=== PATIENT | male | born 1975 | race Caucasian/White ===

== ENCOUNTER 2019-10-11 16:09 | Inpatient (IN) | payer BC, OTHER ==
[~2019-10-11] VITALS: Ht 175.3 cm; Wt 86.2 kg
[2019-10-11 16:00] VITALS: BP 121/70
[2019-10-11 16:26] VITALS: BP 118/82
[2019-10-11 18:00] VITALS: BP 110/68
[2019-10-11 18:04] LABS: BASOPHILS % 0.7 % (0.0-2.0); EOSINOPHILS % 2.4 % (0.0-5.0); HEMATOCRIT. 45.9 % (42.0-52.0); HEMOGLOBIN. 15.7 g/dL (14.0-18.0); LYMPHOCYTES % 20.8 % (20.0-50.0); MEAN CORPUSCULAR VOLUME 85.1 fL (80.0-94.0); MEAN PLATELET VOLUME 6.7 fl (7.4-10.4); MONOCYTES % 8.2 % (2.0-8.0); NEUTROPHILS % 67.9 % (40.0-76.0); PLATELET 308 x1000/uL (130-400); RED CELL DISTRIBUTION WIDTH 12.9 % (11.6-14.6)
[2019-10-11 18:05] LABS: CHLORIDE 104 mEq/L (98-107)
[2019-10-11] MEDS ORDERED: NITROGLYCERIN 0.4MG TABLET SL SL PRN (18:15)
[2019-10-11 18:17] LABS: PROTHROMBIN TIME 10.7 sec (9.6-11.0)
[2019-10-11 20:00] VITALS: BP 116/74
[2019-10-11] MEDS ORDERED: MAGNESIUM 4 G PREMIX 100 ML IV SCH (20:00)
[2019-10-11] MEDS ORDERED: DOCUSATE SODIUM 100MG CAPSULE PO SCH (21:00)
[2019-10-11 22:00] VITALS: BP 136/78
[2019-10-12] VITALS (12 sets, daily range): BP systolic 95–136; BP diastolic 63–91
[2019-10-12 03:20] LABS: CLARITY URINE CLEAR (CLEAR); COLOR URINE YELLOW (YELLOW); KETONES URINE NEGATIVE (NEGATIVE); LEUKOCYTE ESTERASE URINE NEGATIVE (NEGATIVE); NITRITE URINE NEGATIVE (NEGATIVE); OCCULT BLOOD URINE NEGATIVE (NEGATIVE); PROTEIN URINE NEGATIVE (NEGATIVE); SPECIFIC GRAVITY URINE 1.015 (1.005-1.030); UROBILINOGEN URINE 0.2 E.U./dL (0.2-1.0)
[2019-10-12] MEDS ORDERED: DIPHENHYDRAMINE 25MG CAPSULE PO PRN ×2 (19:00→21:00)
[2019-10-12] MEDS ORDERED: MAGNESIUM 4 G PREMIX 100 ML IV ONE (20:00)
[2019-10-12] MEDS ORDERED: DOCUSATE SODIUM 100MG CAPSULE PO SCH (21:00)
[2019-10-12] MEDS ORDERED: BISACODYL 10MG SUPP PR PRN (21:00)
[2019-10-12] MEDS ORDERED: ASCORBIC ACID 500 MG TABLET PO SCH (21:00)
[2019-10-12] MEDS ORDERED: CHLORHEXIDINE GLUCONATE 4% EXTERNAL USE TOP SCH (21:00)
[2019-10-12] MEDS: ALLOPURINOL 300 MG TABLET PO SCH (21:01)
[2019-10-13] VITALS (77 sets, daily range): BP systolic 0–138; BP diastolic 0–89
[2019-10-13] MEDS ORDERED: BLOOD SUGAR DIAGNOSTIC STRIP TEST NR (05:00)
[2019-10-13] MEDS ORDERED: CEFAZOLIN 2,000 MG in DEXT 5% WATER 100 ML IV SCH (05:00)
[2019-10-13] MEDS: ALLOPURINOL 300 MG TABLET PO SCH (05:29)
[2019-10-13] MEDS ORDERED: SKIN ADHESIVE 0.7 GM EA TOP ONE (05:46)
[2019-10-13] MEDS ORDERED: BACITRACIN 15GM TUBE TOP ONE (05:46)
[2019-10-13] MEDS ORDERED: NORMAL SALINE 0.9% 10 ML SYR ONE ×2 (05:47→11:54)
[2019-10-13] MEDS ORDERED: THROMBIN (BOVINE) 5000 UNITS/VIAL TOP ONE ×5 (05:47→11:56)
[2019-10-13] MEDS ORDERED: BACITRACIN 50,000 UNITS/VIAL ONE ×2 (05:47→11:55)
[2019-10-13] MEDS ORDERED: HEPARIN 10,000 UNITS/ML VIAL ONE ×6 (05:49→12:04)
[2019-10-13] MEDS ORDERED: HEPARIN 1000 UNITS/ML 10ML ONE ×4 (05:53→12:04)
[2019-10-13] MEDS ORDERED: CHLORHEXIDINE GLUCONATE 4% EXTERNAL USE TOP SCH (06:00)
[2019-10-13] MEDS ORDERED: DOBUTAMINE 250MG PREMIX 250 ML IV ONE (06:30)
[2019-10-13] MEDS ORDERED: INSULIN REGULAR (DRIP) 100 UNITS in SODIUM CHLORIDE 0.9% 99 ML IV ONE (06:30)
[2019-10-13] MEDS ORDERED: AMINOCAPROIC ACID 10,000 MG in SODIUM CHLORIDE 0.9% 460 ML IV ONE (06:30)
[2019-10-13] MEDS ORDERED: PAPAVERINE HCL 180MG in SODIUM CHLORIDE 0.9% 24ML IV ONE (06:30)
[2019-10-13] MEDS ORDERED: NICARDIPINE 50 MG in NS 250 ML IV ONE (06:30)
[2019-10-13] MEDS ORDERED: DEL NIDO ELECTROLYTE-S(PH 7.4) 1,000 ML IV ONE ×2 (06:30)
[2019-10-13] MEDS ORDERED: ALBUMIN HUMAN 25GM/100ML (25%) IV ONE ×2 (06:42→12:05)
[2019-10-13] MEDS ORDERED: AMINOCAPROIC ACID 250 MG/ML 20ML VIAL ONE ×2 (06:42→12:05)
[2019-10-13] MEDS ORDERED: AMIODARONE HCL 50MG/ML 3ML VIAL IV ONE (06:43)
[2019-10-13] MEDS ORDERED: SEVOFLURANE 250 ML LIQUID INH ONE (06:43)
[2019-10-13] MEDS ORDERED: DOPAMINE 400MG/250ML PREMIX 250 ML IV ONE (06:43)
[2019-10-13] MEDS ORDERED: CALCIUM CHLORIDE 1GM/10ML SYR IV ONE ×3 (06:43→12:05)
[2019-10-13] MEDS ORDERED: LIDOCAINE HCL 2% 5ML SYRINGE IV ONE (06:44)
[2019-10-13] MEDS ORDERED: MAGNESIUM SULFATE 5GM/10ML VIAL IV ONE ×2 (06:44→07:38)
[2019-10-13] MEDS ORDERED: HYDROMORPHONE HCL/PF 2MG/ML (OR) ONE ×3 (06:45→12:34)
[2019-10-13] MEDS ORDERED: PHENYLEPHRINE 50 MG in DEXTROSE 5% WATER 250 ML IV PRN (06:45)
[2019-10-13] MEDS ORDERED: NOREPINEPHRINE 8 MG in DEXTROSE 5% WATER 250 ML IV PRN (06:45)
[2019-10-13] MEDS ORDERED: PHENYLEPHRINE HCL 10 MG/ML 1ML (IV VIAL) IV ONE ×2 (06:45→12:05)
[2019-10-13] MEDS ORDERED: ROCURONIUM BROMIDE 10MG/ML VIAL 5ML IV ONE ×2 (06:45→12:13)
[2019-10-13] MEDS ORDERED: PROPOFOL 10MG/ML 100ML 100 ML IV ONE ×2 (06:45→12:13)
[2019-10-13] MEDS ORDERED: POTASSIUM CHLORIDE 40MEQ/20ML INJ IV ONE ×2 (06:46→13:19)
[2019-10-13] MEDS ORDERED: SODIUM BICARBONATE 8.4% 1 MEQ/ML 50ML SYR IV ONE ×4 (06:47→12:05)
[2019-10-13] MEDS ORDERED: DEXAMETHASONE 4MG/ML 1ML VIAL ONE (06:48)
[2019-10-13 07:09] LABS: BASOPHILS % 0.5 % (0.0-2.0); EOSINOPHILS % 1.6 % (0.0-5.0); LYMPHOCYTES % 13.9 % (20.0-50.0); MEAN CORPUSCULAR HEMOGLOBIN 29.5 pg (28.0-32.0); MEAN CORPUSCULAR VOLUME 84.6 fL (80.0-94.0); MEAN PLATELET VOLUME 6.8 fl (7.4-10.4); MONOCYTES % 7.9 % (2.0-8.0); NEUTROPHILS % 76.1 % (40.0-76.0); PLATELET 287 x1000/uL (130-400); RED BLOOD CELL COUNT 5.08 mill/uL (4.7-6.1); RED CELL DISTRIBUTION WIDTH 12.7 % (11.6-14.6)
[2019-10-13] MEDS ORDERED: EPINEPHRINE 5 MG in DEXT 5% WATER 245 ML IV ONE (07:15)
[2019-10-13 07:25] LABS: CHLORIDE 102 mEq/L (98-107)
[2019-10-13] MEDS ORDERED: CEFAZOLIN SODIUM 1000MG/VIAL ONE ×2 (07:39→12:35)
[2019-10-13] MEDS ORDERED: DILTIAZEM HCL 5MG/ML 10ML VIAL IV SCH (08:30)
[2019-10-13] MEDS ORDERED: PROTAMINE SULFATE 10MG/ML VIAL 25ML IV ONE (09:31)
[2019-10-13] MEDS ORDERED: DEXMEDETOMIDINE 400 MCG/100 ML 100 ML IV ONE (10:29)
[2019-10-13] MEDS ORDERED: SODIUM CHLORIDE 0.9% 500 ML IV PRN (10:32)
[2019-10-13] MEDS ORDERED: MAGNESIUM SULFATE 3 GM in DEXT 5% WATER 100 ML IV PRN (10:45)
[2019-10-13] MEDS ORDERED: ALBUMIN HUMAN 25GM/100ML (25%) IV PRN (10:45)
[2019-10-13] MEDS ORDERED: ACETAMINOPHEN 325MG TABLET PO PRN (10:45)
[2019-10-13] MEDS ORDERED: DOPAMINE 400MG/250ML PREMIX 250 ML IV SCH (10:45)
[2019-10-13] MEDS ORDERED: CALCIUM CHLORIDE 3,000 MG in DEXT 5% WATER 250 ML IV PRN (10:45)
[2019-10-13] MEDS ORDERED: ACETAMINOPHEN 650MG SUPP PR PRN (10:45)
[2019-10-13] MEDS ORDERED: MAGNESIUM 2 G PREMIX 50 ML IV PRN (10:45)
[2019-10-13] MEDS ORDERED: MAGNESIUM 1 G PREMIX 100 ML IV PRN (10:45)
[2019-10-13] MEDS ORDERED: ALBUMIN HUMAN 12.5G/250ML (5%) IV PRN (10:45)
[2019-10-13] MEDS ORDERED: ALBUMIN HUMAN 12.5G/250ML (5%) IV ONE ×2 (10:45→12:44)
[2019-10-13] MEDS ORDERED: EPINEPHRINE 5 MG in DEXT 5% WATER 245 ML IV SCH (10:45)
[2019-10-13] MEDS ORDERED: MAGNESIUM SULFATE 1G IN DEXT 5% 100ML PREMIX IV ONE (10:45)
[2019-10-13] MEDS ORDERED: PROTAMINE SULFATE 10MG/ML VIAL 25ML IV SCH (11:15)
[2019-10-13] MEDS: PROTAMINE SULFATE 10MG/ML VIAL 5ML IV SCH ×2 (11:18→11:50)
[2019-10-13 11:30] LABS: BG BASE EXCESS -4.4 mmol/L (-2.0-2.0); BG CARBOXYHEMOGLOBIN 0.1 % (0.5-1.5); BG FRACTION INSPIRED OXYGEN 99.8; BG HCO3 ACT 22.7 mmol/L (22.0-26.0); BG METHEMOGLOBIN 0.4 % (0.0-1.5); BG OXYHEMOGLOBIN 98.5 % (94.0-97.0); BG PCO2 49.7 mmHg (35.0-45.0); BG PH 7.277 (7.350-7.450); BG PO2 202.4 mmHg (75.0-100.0); BG SAMPLE SITE A-LINE; BG TOTAL HEMOGLOBIN 13.3 g/dL (12.0-18.0); BG VENT MODE MASK - NRB
[2019-10-13] MEDS ORDERED: AMINOCAPROIC ACID 5,000 MG in SODIUM CHLORIDE 0.9% 100 ML IV SCH (11:30)
[2019-10-13 11:46] LABS: HEMATOCRIT. 36.2 % (42.0-52.0); HEMOGLOBIN. 12.4 g/dL (14.0-18.0); MEAN CORPUSCULAR HEMOGLOBIN 29.6 pg (28.0-32.0); MEAN CORPUSCULAR VOLUME 86.1 fL (80.0-94.0); MEAN PLATELET VOLUME 6.8 fl (7.4-10.4); PLATELET 292 x1000/uL (130-400); RED CELL DISTRIBUTION WIDTH 12.5 % (11.6-14.6)
[2019-10-13 11:59] LABS: PARTIAL THROMBOPLASTIN TIME 26.8 sec (23.4-31.0)
[2019-10-13] MEDS ORDERED: AMINOCAPROIC ACID 5,000 MG in SODIUM CHLORIDE 0.9% 250 ML IV SCH (12:00)
[2019-10-13] MEDS ORDERED: CEFAZOLIN 1000MG PREMIX 50 ML IV SCH (12:00)
[2019-10-13 12:07] LABS: CHLORIDE 106 mEq/L (98-107)
[2019-10-13 12:21] LABS: PLATELET ESTIMATE NORMAL
[2019-10-13] MEDS ORDERED: DESMOPRESSIN ACETATE 4MCG/ML AMP ONE (12:55)
[2019-10-13] MEDS ORDERED: CEFAZOLIN 1,000 MG in DEXTROSE 5% WATER 50 ML IV SCH (13:00)
[2019-10-13] MEDS ORDERED: PROTAMINE SULFATE 10MG/ML VIAL 5ML IV NR (13:00)
[2019-10-13] MEDS ORDERED: PROTAMINE SULFATE 10MG/ML VIAL 25ML IV NR (13:00)
[2019-10-13] MEDS ORDERED: DEXTROSE 50% WATER 50ML SYRINGE IV PRN ×2 (13:30)
[2019-10-13] MEDS: BLOOD SUGAR DIAGNOSTIC STRIP TEST SCH ×11 (13:30→23:47)
[2019-10-13] MEDS: INSULIN REGULAR (DRIP) 100 UNITS in SODIUM CHLORIDE 0.9% 99 ML IV SCH (14:59)
[2019-10-13] MEDS: CEFAZOLIN 1000MG PREMIX 50 ML IV SCH ×2 (15:14→20:59)
[2019-10-13] MEDS: OXYCODONE HCL/ACETAMINOPHEN 5/325MG TABLET PO PRN (16:04)
[2019-10-13] MEDS: ONDANSETRON HCL 4MG/2ML INJ IV PRN (16:58)
[2019-10-13] MEDS: IPRATROPIUM/ALBUTEROL 0.5-3(2.5)MG/3ML NEB HHN SCH ×2 (17:28→20:14)
[2019-10-13] MEDS ORDERED: ALBUMIN HUMAN 25GM/500ML (5%) IV NR (17:30)
[2019-10-13 17:31] LABS: HEMATOCRIT. 24.7 % (42.0-52.0); HEMOGLOBIN. 8.4 g/dL (14.0-18.0); MEAN CORPUSCULAR HEMOGLOBIN 29.7 pg (28.0-32.0); MEAN CORPUSCULAR VOLUME 87.3 fL (80.0-94.0); PLATELET 256 x1000/uL (130-400); RED BLOOD CELL COUNT 2.83 mill/uL (4.7-6.1); RED CELL DISTRIBUTION WIDTH 12.7 % (11.6-14.6)
[2019-10-13 17:38] LABS: PARTIAL THROMBOPLASTIN TIME 25.7 sec (23.4-31.0); PROTHROMBIN TIME 10.7 sec (9.6-11.0)
[2019-10-13 17:51] LABS: PLATELET ESTIMATE NORMAL
[2019-10-13 17:52] LABS: CHLORIDE 114 mEq/L (98-107)
[2019-10-13] MEDS: DOCUSATE SODIUM 100MG CAPSULE PO SCH (18:24)
[2019-10-13] MEDS ORDERED: FUROSEMIDE 40MG/4ML VIAL IVP NR (18:30)
[2019-10-13] MEDS ORDERED: DEXTROSE 50% WATER 50ML SYRINGE IV NR (18:30)
[2019-10-13] MEDS ORDERED: INSULIN REGULAR (HUMULIN R) 300UNITS/3ML IV NR (18:45)
[2019-10-13] MEDS: METOPROLOL TARTRATE 25MG TABLET PO SCH (20:19)
[2019-10-13 20:32] LABS: CHLORIDE 111 mEq/L (98-107)
[2019-10-13 20:37] LABS: HEMOGLOBIN 8.7 g/dL (14.0-18.0)
[2019-10-13] MEDS: ACETAMINOPHEN 325MG TABLET PO PRN (20:58)
[2019-10-13] MEDS: ATORVASTATIN CALCIUM 40MG TABLET PO SCH (20:59)
[2019-10-13] MEDS ORDERED: ASPIRIN 81MG TABLET PO ONE (21:00)
[2019-10-13] MEDS: MORPHINE SULFATE 2 MG/ML CPJ (NOT FOR IM USE) IV PRN (21:00)
[2019-10-13] MEDS: BACITRACIN 15GM TUBE TOP SCH (21:00)
[2019-10-13] MEDS ORDERED: MAGNESIUM 1 G PREMIX 100 ML IV NR (21:30)
[2019-10-13] MEDS ORDERED: MAGNESIUM 2 G PREMIX 50 ML IV NR (22:30)
[2019-10-14] VITALS (52 sets, daily range): BP systolic 84–141; BP diastolic 51–77
[2019-10-14] MEDS: BLOOD SUGAR DIAGNOSTIC STRIP TEST SCH ×14 (00:01→21:20)
[2019-10-14] MEDS: MORPHINE SULFATE 2 MG/ML CPJ (NOT FOR IM USE) IV PRN ×4 (00:06→07:41)
[2019-10-14] MEDS: IPRATROPIUM/ALBUTEROL 0.5-3(2.5)MG/3ML NEB HHN SCH ×6 (00:12→20:21)
[2019-10-14 01:49] LABS: HEMATOCRIT 22.9 % (42.0-52.0); HEMOGLOBIN 7.8 g/dL (14.0-18.0); MEAN CORPUSCULAR HEMOGLOBIN 29.3 pg (28.0-32.0); PLATELET 210 x1000/uL (130-400); RED BLOOD CELL COUNT 2.66 mill/uL (4.7-6.1); RED CELL DISTRIBUTION WIDTH 12.7 % (11.6-14.6)
[2019-10-14 02:01] LABS: CHLORIDE 105 mEq/L (98-107)
[2019-10-14] MEDS: ACETAMINOPHEN 325MG TABLET PO PRN (03:07)
[2019-10-14] MEDS: CEFAZOLIN 1000MG PREMIX 50 ML IV SCH ×2 (05:06→13:25)
[2019-10-14] MEDS ORDERED: ALBUMIN HUMAN 25GM/100ML (25%) IV ONE (06:30)
[2019-10-14 06:37] LABS: CHLORIDE 104 mEq/L (98-107)
[2019-10-14 06:38] LABS: HEMATOCRIT. 22.4 % (42.0-52.0); HEMOGLOBIN. 7.7 g/dL (14.0-18.0); MEAN CORPUSCULAR HEMOGLOBIN 29.6 pg (28.0-32.0); MEAN PLATELET VOLUME 6.9 fl (7.4-10.4); PLATELET 223 x1000/uL (130-400); RED CELL DISTRIBUTION WIDTH 12.7 % (11.6-14.6)
[2019-10-14] MEDS: INSULIN REGULAR (DRIP) 100 UNITS in SODIUM CHLORIDE 0.9% 99 ML IV SCH ×2 (07:24→09:04)
[2019-10-14] MEDS: DOCUSATE SODIUM 100MG CAPSULE PO SCH ×2 (08:21→18:29)
[2019-10-14] MEDS: OXYCODONE HCL/ACETAMINOPHEN 5/325MG TABLET PO PRN ×4 (08:21→22:10)
[2019-10-14] MEDS: ASPIRIN 81MG EC TABLET PO SCH (08:22)
[2019-10-14] MEDS: CLOPIDOGREL 75MG TABLET PO SCH (08:22)
[2019-10-14] MEDS: METOPROLOL TARTRATE 25MG TABLET PO SCH ×3 (08:22→21:00)
[2019-10-14] MEDS: FAMOTIDINE 20MG/2ML VIAL IV SCH (09:00)
[2019-10-14] MEDS: FUROSEMIDE 40MG/4ML VIAL IVP SCH (09:38)
[2019-10-14 10:08] LABS: PLATELET ESTIMATE NORMAL
[2019-10-14] MEDS: ONDANSETRON HCL 4MG/2ML INJ IV PRN ×2 (11:47→19:52)
[2019-10-14] MEDS: INSULIN LISPRO 100 UNITS/ML SUBCUT SCH ×4 (11:54→21:24)
[2019-10-14] MEDS ORDERED: DEXTROSE 50% WATER 50ML SYRINGE IV PRN (12:00)
[2019-10-14] MEDS ORDERED: MINERAL OIL 30ML BOTTLE PO NR (12:00)
[2019-10-14] MEDS ORDERED: DOPAMINE 400MG/250ML PREMIX 250 ML IV SCH (15:30)
[2019-10-14] MEDS: BACITRACIN 15GM TUBE TOP SCH ×2 (21:00→21:10)
[2019-10-14] MEDS: ATORVASTATIN CALCIUM 40MG TABLET PO SCH (21:19)
[2019-10-15] VITALS (14 sets, daily range): BP systolic 94–129; BP diastolic 48–80
[2019-10-15] MEDS: IPRATROPIUM/ALBUTEROL 0.5-3(2.5)MG/3ML NEB HHN SCH ×7 (00:46→23:44)
[2019-10-15] MEDS: OXYCODONE HCL/ACETAMINOPHEN 5/325MG TABLET PO PRN ×3 (04:04→21:27)
[2019-10-15] MEDS: BLOOD SUGAR DIAGNOSTIC STRIP TEST SCH ×4 (06:47→21:09)
[2019-10-15 07:00] LABS: BASOPHILS % 0.1 % (0.0-2.0); HEMOGLOBIN. 7.1 g/dL (14.0-18.0); LYMPHOCYTES % 7.5 % (20.0-50.0); MEAN CORPUSCULAR HEMOGLOBIN 29.6 pg (28.0-32.0); MEAN CORPUSCULAR VOLUME 85.9 fL (80.0-94.0); MONOCYTES % 10.4 % (2.0-8.0); PLATELET 226 x1000/uL (130-400); RED BLOOD CELL COUNT 2.39 mill/uL (4.7-6.1); RED CELL DISTRIBUTION WIDTH 12.7 % (11.6-14.6)
[2019-10-15 07:30] LABS: CHLORIDE 101 mEq/L (98-107)
[2019-10-15] MEDS: DOCUSATE SODIUM 100MG CAPSULE PO SCH ×2 (08:16→18:22)
[2019-10-15] MEDS: ASPIRIN 81MG EC TABLET PO SCH (08:16)
[2019-10-15] MEDS: FAMOTIDINE 20MG/2ML VIAL IV SCH (08:16)
[2019-10-15] MEDS: FUROSEMIDE 40MG/4ML VIAL IVP SCH (08:16)
[2019-10-15] MEDS: INSULIN LISPRO 100 UNITS/ML SUBCUT SCH ×4 (08:17→21:00)
[2019-10-15] MEDS: CLOPIDOGREL 75MG TABLET PO SCH (08:17)
[2019-10-15] MEDS: BACITRACIN 15GM TUBE TOP SCH ×2 (08:19→21:31)
[2019-10-15] MEDS: METOPROLOL TARTRATE 25MG TABLET PO SCH ×2 (08:19→21:26)
[2019-10-15 08:45] LABS: HEMATOCRIT. 20.5 % (42.0-52.0)
[2019-10-15] MEDS ORDERED: FUROSEMIDE 40MG/4ML VIAL IVP NR (15:00)
[2019-10-15] MEDS: ATORVASTATIN CALCIUM 40MG TABLET PO SCH (21:26)
[2019-10-16] VITALS (10 sets, daily range): BP systolic 97–199; BP diastolic 27–87
[2019-10-16] MEDS: OXYCODONE HCL/ACETAMINOPHEN 5/325MG TABLET PO PRN (03:36)
[2019-10-16] MEDS: IPRATROPIUM/ALBUTEROL 0.5-3(2.5)MG/3ML NEB HHN SCH ×2 (04:09→09:59)
[2019-10-16] MEDS: BLOOD SUGAR DIAGNOSTIC STRIP TEST SCH ×2 (06:00→11:58)
[2019-10-16 06:03] LABS: CHLORIDE 96 mEq/L (98-107)
[2019-10-16 06:36] LABS: BASOPHILS % 0.1 % (0.0-2.0); EOSINOPHILS % 0.1 % (0.0-5.0); HEMOGLOBIN. 7.1 g/dL (14.0-18.0); LYMPHOCYTES % 12.4 % (20.0-50.0); MEAN CORPUSCULAR HEMOGLOBIN 29.5 pg (28.0-32.0); MEAN CORPUSCULAR VOLUME 86.8 fL (80.0-94.0); MEAN PLATELET VOLUME 7.1 fl (7.4-10.4); MONOCYTES % 9.3 % (2.0-8.0); NEUTROPHILS % 78.1 % (40.0-76.0); PLATELET 270 x1000/uL (130-400); RED BLOOD CELL COUNT 2.41 mill/uL (4.7-6.1); RED CELL DISTRIBUTION WIDTH 12.7 % (11.6-14.6)
[2019-10-16 06:43] LABS: HEMATOCRIT. 20.9 % (42.0-52.0)
[2019-10-16] MEDS: INSULIN LISPRO 100 UNITS/ML SUBCUT SCH (07:20)
[2019-10-16] MEDS ORDERED: FUROSEMIDE 40MG TABLET PO SCH (08:00)
[2019-10-16] MEDS: CLOPIDOGREL 75MG TABLET PO SCH (08:41)
[2019-10-16] MEDS: ASPIRIN 81MG EC TABLET PO SCH (08:41)
[2019-10-16] MEDS: DOCUSATE SODIUM 100MG CAPSULE PO SCH (08:41)
[2019-10-16] MEDS: METOPROLOL TARTRATE 25MG TABLET PO SCH (08:42)
[2019-10-16] MEDS: MAGNESIUM 4 G PREMIX 100 ML IV SCH ×3 (09:00→10:45)
[2019-10-16] MEDS ORDERED: DOCUSATE SODIUM 100MG CAPSULE PO SCH (09:00)
[2019-10-16] MEDS: FAMOTIDINE 20MG/2ML VIAL IV SCH ×2 (09:00→09:16)
[2019-10-16] MEDS: BACITRACIN 15GM TUBE TOP SCH (09:30)
[2019-10-16] MEDS ORDERED: FURO40TA5 PO (10:39)
[2019-10-16] MEDS ORDERED: METO25TA6 PO (10:39)
[2019-10-16] MEDS ORDERED: LIP40 PO (10:39)
[2019-10-16] MEDS ORDERED: OXYC-523 PO ×2 (10:39→14:36)
[2019-10-16] MEDS ORDERED: CLOP75TA15 PO (10:39)
[2019-10-16] MEDS ORDERED: MAGNESIUM OXIDE 400MG TABLET PO NR (11:14)
[2019-10-16] MEDS ORDERED: POLYETHYLENE GLYCOL 3350 (17GM) 1 DOSE PACK PO SCH (21:00)
== END 2019-10-16 14:52 | disposition home health service (06) | DRG 236 ==
LOC: 3WST 16:09 → CVICU 10-13 07:43 → 3WST 10-14 15:29
PROVIDERS: ADMIT Internal Medicine; ATTEND Internal Medicine
PROC: 02100Z9 Bypass Coronary Artery, One Artery from Left Internal Mammary, Open Approach (ICD-10-PCS; principal; 2019-10-13)
PROC: 0WJC0ZZ Inspection of Mediastinum, Open Approach (ICD-10-PCS; 2019-10-13)
PROC: 021209W Bypass Coronary Artery, Three Arteries from Aorta with Autologous Venous Tissue, Open Approach (ICD-10-PCS; 2019-10-13)
PROC: 06BQ4ZZ Excision of Left Saphenous Vein, Percutaneous Endoscopic Approach (ICD-10-PCS; 2019-10-13)
DX: I25.10 Atherosclerotic heart disease of native coronary artery without angina pectoris (principal); D68.9 Coagulation defect, unspecified; I97.611 Postprocedural hemorrhage of a circulatory system organ or structure following cardiac bypass; J98.11 Atelectasis; D64.9 Anemia, unspecified; I10 Essential (primary) hypertension; E11.65 Type 2 diabetes mellitus with hyperglycemia; Z82.49 Family history of ischemic heart disease and other diseases of the circulatory system; Z95.5 Presence of coronary angioplasty implant and graft; I25.2 Old myocardial infarction; Z20.828 Contact with and (suspected) exposure to other viral communicable diseases
CPT/HCPCS: 36415; 36600; 71045; 71046; 80048; 80053; 81003; 82375; 82805; 82962; 83735; 84132; 85014; 85018; 85025; 85027; 85347; 85520; 86850; 86900; 86920; 87635; 93005; 93306; 93880; 93923; 94640; 97110; 97116; 97163; 97166; 97530; 97535; C1729; C1751; C1758; J0282; J0690; J1100; J1170; J1250; J1265; J1644; J1815; J1940; J2270; J2370; J2405; J2440; J2597; J2704; J2720; J3475; J3480; J3490; J7040; J7050; J7060; L3908; P9041; P9047; Q9957